=== PATIENT | male | born 1970 | race Caucasian/White ===

== ENCOUNTER 2017-01-17 | Emergency (ER) | payer OTHER ==
[2017-01-17 00:08] VITALS: BP 139/89; PULSE 66; TEMP 98.2; BMI 33.1
--- NOTE | 2017-01-17 00:09 | PDOC ---
History of Present Illness - General Chief Complaint: Ear Problem Stated Complaint: LT EAR PROBLEM Time Seen by Provider: 01/17/17 00:09 History Source: Patient Exam Limitations: No Limitations - History of Present Illness Initial Comments: 01/17/17 00:09 This is a 46-year-old male who is otherwise healthy and comes in complaining of a sensation that his left ear is clogged. Patient was here proximally 4 days ago had some excess cerumen removed from his ear and was noted to have an otitis externa. Patient was started on neomycin drops which she has been taking for the last 4 days and said that his ear is gotten progressively more clogged. Patient denies any fever, chills, pain or cough, congestion or sore throat. Patient says he is otherwise healthy. PAST MEDICAL HISTORY: no significant history PAST SURGICAL HISTORY: no significant history FAMILY HISTORY: no pertinant history SOCIAL HISTORY: Pt lives with family and is employed. MEDICATIONS: reviewed ALLERGIES: As per nursing notes Review of Systems General: No fevers or chills, no weakness, no weight loss HEENT: No change in vision. No sore throat,. Sensation of ear being clogged as per history of present illness CardioVascular: No chest pain or shortness of breath Respiratory:No cough, or wheezing. Gastrointestinal: no nausea, vomitting, diarrhea or constipation, No rectal bleeding Genitourinary: No dysuria, hematuria, or frequency Musculoskeletal: No joint or muscle pain or swelling Neurologic: No headache, vertigo, dizziness or loss of consciousness Psychiatric: nor depression Skin: No rashes or easy bruising Endocrine: no increased thirst or abnormal weight change Allergic: no skin or latex allergy All other systems reviewed and normal GENERAL: The patient is awake, alert, and fully oriented, in no acute distress. HEAD: Normal with no signs of trauma. EYES: Pupils equal, round and reactive to light, extraocular movements intact, sclera anicteric, conjunctiva clear. EARS: Right ear canal is normal right tympanic membrane is normal, left ear canal there is some very mild erythema surrounding the tympanic membrane with dullness and mild erythema of the tympanic membrane there is also some fluid behind the tympanic membrane. EXTREMITIES: Normal range of motion, no edema. NEUROLOGICAL: Normal speech, normal gait. grossly intact PSYCH: Normal mood, normal affect. SKIN: Warm, Dry, normal turgor, no rashes or lesions noted. Assessment and plan: This is a 46-year-old male who comes in complaining that he feels like his left ear is clogged. Patient does have some fluid behind the tympanic membrane with some erythema of the periphery of the tympanic membrane. Patient was started on azithromycin and told to take a decongestant that is over -the-counter. Patient given first dose here in the emergency room send a prescription to his pharmacy. Patient discharged home will follow-up with his primary care doctor as needed. 01/17/17 00:14 Past History - Past Medical History Allergies/Adverse Reactions: Allergies Allergy/AdvReac Type Severity Reaction Status Date / Time No Known Allergies Allergy Verified 03/06/14 21:04 Home Medications: Ambulatory Orders Azithromycin 250 mg PO DAILY #4 tablet 01/17/17 Neomycin/Polymyxn/Hc [Cortisporin Otic Solution -] 4 drop AD TID 01/17/17 - Suicide/Smoking/Psychosocial Hx Smoking History: Never smoked Have you smoked in the past 12 months: No Hx Alcohol Use: No Substance Use Type: None *Physical Exam - Vital Signs Last Vital Signs Temp Pulse Resp BP Pulse Ox 98.2 F 66 16 139/89 96 01/17/17 00:04 01/17/17 00:04 01/17/17 00:04 01/17/17 00:04 01/17/17 00:04 *DC/Admit/Observation/Transfer Diagnosis at time of Disposition: Left otitis media Qualifiers: Otitis media type: unspecified Qualified Code(s): H66.92 - Otitis media, unspecified, left ear - Discharge Dispostion Disposition: HOME Condition at time of disposition: Stable Admit: No - Prescriptions Prescriptions: Azithromycin 250 mg PO DAILY #4 tablet - Referrals Referrals: Jarocho Newell MD [Primary Care Provider] - - Patient Instructions Additional Instructions: Purchase an [id number] decongestant such as pseudoephedrine and take as directed for the next 2 days to help decrease the decongestant and drain the fluid from behind the eardrum. Take azithromycin 1 tablet a day for the next 4 days. You were given a first tablet here in the emergency room he'll take a neck tablet tomorrow evening. Continue the drops were given for the full course that you were prescribed. Return to the emergency department immediately with ANY new, persistent or worsening symptoms. Continue any medications as previously prescribed by your physician. You should follow up with your primary doctor as soon as possible regarding today's emergency department visit. . Please make sure your doctor reviews the results of your emergency evaluation. Thank you for coming to the Emergency Department today for your care. It was a pleasure to see you today. Please note that your evaluation is INCOMPLETE until you follow-up with your doctor. - Post Discharge Activity
[2017-01-17] MEDS ORDERED: AZITHROMYCIN 500 MG TABLET PO ONE (00:12)
[2017-01-17] MEDS ORDERED: AZITHROMYCIN 500 MG TABLET ONE (00:15)
== END 2017-01-17 00:18 | disposition home or self-care (01) ==
LOC: FER
DX: H66.92 Otitis media, unspecified, left ear (principal)
CPT/HCPCS: 99281-25